=== PATIENT | male | born 1930 | race Caucasian/White ===

== ENCOUNTER → 2017-07-20 | Outpatient (CLI) | payer MEDICARE, OTHER ==
--- NOTE | 2017-07-21 10:13 | PE ---
EXAMINATION TYPE: PET CT fusion skull to thigh DATE OF EXAM: 07/20/2017 COMPARISON: None at this location Prior PET/CT: None at this location HISTORY: Prostate cancer, multiple lung nodules TECHNIQUE: Following the intravenous administration of 15.5 mCi of F-18 FDG, whole body images are p erformed from the skull base to the midthigh. Images are reviewed on the computer in the coronal, ax ial, and sagittal planes. Reconstructed rotating images are created on independent workstation and r eviewed on the computer. A localization and attenuation correction CT is performed in conjunction w ith the PET scan. DLP: 536.90 mGycm SCAN: Initial Blood glucose: 116 mg/dL Average Mediastinum SUV: 1.1 Average Liver SUV: 2.0 FINDINGS: NECK: No abnormal uptake THORAX: There is mild uptake within the nodule within the periphery of the left lateral lung base margaret suring 2.2 views SUV value. PET image 110 inflammatory change neoplasm are within the differential. Suspicious uptake within the thickening of the posterior right pleural margin is not evident. The nod ule posterior to the descending thoracic aorta has an SUV value 1.1 which is not suspicious for metas tatic disease. Low metabolic activity neoplasm however is not excluded. ABDOMEN: No abnormal uptake PELVIS: No abnormal uptake OSSEOUS STRUCTURES: No abnormal uptake LOCALIZATION CT: Note is made of diverticular changes without acute diverticulitis sigmoid colon. T he ascending thoracic aorta at the level the main pulmonary artery measures 4.3 cm. The main pulmonar y artery the bifurcation is 3.8 cm. Small left pleural effusion is present. Minimal right pleural eff usion is present. COMPARISON: None IMPRESSION: 1. There is intermediate signal within the large nodule within the periphery of the left lung base me asuring 2.2 SUV. This is indeterminant for neoplasm versus inflammatory change. 2. Additional lung nodules did not have suspicious levels of uptake. 3. Small bilateral pleural effusions
== END | disposition home or self-care (01) ==
LOC: RADPETMAIN 09:34
PROVIDERS: ATTEND Internal Medicine
DX: R91.8 Other nonspecific abnormal finding of lung field (principal); J90 Pleural effusion, not elsewhere classified
CPT/HCPCS: 78815; A9552